=== PATIENT | female | born 1990 | race American Indian/Alaskan Native ===

== ENCOUNTER 2019-11-22 06:11 | Emergency (ER) | payer MEDICAID ==
[2019-11-22 06:18] VITALS: BP 120/83
[2019-11-22 06:54] LABS: Basophils % (Auto) 0.2 % (0.0-1.8); Eosinophils # (Auto) 0.2 K/mm3 (0.0-0.4); Eosinophils % (Auto) 2.1 % (0.0-4.3); Hematocrit 31.9 % (30.3-42.9); Hemoglobin 10.3 gm/dl (10.1-14.3); Lymphocytes # (Auto) 2.5 K/mm3 (1.2-5.4); Lymphocytes % (Auto) 26.4 % (13.4-35.0); Mean Corpuscular HGB Conc 32 % (30-34); Mean Corpuscular Volume 72 fl (79-97); Monocytes # (Auto) 0.7 K/mm3 (0.0-0.8); Platelet Count 388 K/mm3 (140-440); Red Blood Count 4.44 M/mm3 (3.65-5.03)
[2019-11-22 06:55] LABS: Red Cell Distribution Width 20.6 % (13.2-15.2)
--- NOTE | 2019-11-22 07:12 | Ultrasound Report ---
ULTRASOUND OBSTETRIC INDICATION / CLINICAL INFORMATION: hx of ruptured membrane last week and abd pain.. Clinical Gestational Age (GA): 18 weeks 4 days TECHNIQUE: Transabdominal. COMPARISON: 11/13/2019 FINDINGS: There is a single intrauterine . Biparietal Diameter = 3.5 cm = 16 weeks, 6 day(s). Head Circumference = 13.7 cm = 17 weeks, 1 day(s). Abdominal Circumference = 12.0 cm = 17 weeks, 5 day(s). Femur Length = 2.4 cm = 17 weeks, 2 day(s). Average Ultrasound Age (AUA) = 17 weeks, 2 day(s). Heart Rate: 145 beats per minute. Estimated Weight in grams (if calculated): 194 g Estimated Weight Growth Percentile (if calculated): Not calculated Position: breech. Cervix: closed. Length in cm (if measured): 2.9 cm Placenta: posterior/fundal and free of the os. Amniotic Fluid Volume: Absent Amniotic Fluid Index (DANISHA) in cm (if calculated): 0. Maternal Adnexa: No significant abnormality. IMPRESSION: 1. Single, living intrauterine with estimated sonographic age of 17 weeks, 2 day(s). 2. As noted on the prior ultrasound exam, there is no visible amniotic fluid present. Signer Name: Joyce Barajas MD Signed: 11/22/2019 7:07 AM Workstation Name: [id number]
[2019-11-22 07:14] LABS: Albumin 3.9 g/dL (3.9-5); BUN/Creatinine Ratio 10; Blood Urea Nitrogen 5 mg/dL (7-17); Calcium 9.1 mg/dL (8.4-10.2); Hemolysis Index 0
[2019-11-22 07:39] LABS: Alanine Aminotransferase < 5 units/L (7-56)
[2019-11-22 08:33] LABS: Bacteria,Urine 1+ /HPF (Negative); Bilirubin,Urine NEG (Negative); Blood,Urine NEG (Negative); Color,Urine Yellow (Yellow); Mucus,Urine FEW /HPF; Protein,Urine <15 mg/dL mg/dL (Negative); Urobilinogen,Urine < 2.0 mg/dL (<2.0)
== END 2019-11-22 10:03 | disposition left against medical advice (07) ==
LOC: ED 06:11
DX: O26.892 Other specified pregnancy related conditions, second trimester (principal); R10.30 Lower abdominal pain, unspecified; Z3A.18 18 weeks gestation of pregnancy; Z53.21 Procedure and treatment not carried out due to patient leaving prior to being seen by health care provider
CPT/HCPCS: 36415; 76805; 80053; 81001; 84702; 85025; 86900; 86901; 87086